=== PATIENT | male | born 1945 | race Caucasian/White ===

== ENCOUNTER 2017-12-28 14:43 | Emergency (ER) | payer MEDICARE, BC ==
--- NOTE | 2017-12-28 15:13 | EDM.PDOC ---
ED HPI GENERAL MEDICAL PROBLEM - General Chief Complaint: Skin Complaint Stated Complaint: wasp bites Time Seen by Provider: 12/28/17 15:07 Source of Information: Reports: Patient History Limitations: Reports: No Limitations - History of Present Illness INITIAL COMMENTS - FREE TEXT/NARRATIVE: This patient is a 72 year old male that presents to the ER. Patient reports yesterday morning at 11am he was out and flipped over a barrel and there was a wasp nest. He reports he got stung once in right roearm, right upper arm, and left upper arm. A total of 3 stings. Patient reports having redness and itching at the site since being stung. He reports he took Benadryl this morning once, but it still is red. Patient denies vasquez, dizziness, n, v, d, f, cp, soa, chest tightness, wheezing, airway closure, acid reflux. Airway is intact. Conversing in full and complete sentences. No acute distress. Stable. Onset Date: 12/27/17 Onset Time: 11:00 Location: Reports: Upper Extremity, Left, Upper Extremity, Right Severity: Mild Improves with: Reports: None Worsens with: Reports: None Associated Symptoms: Denies: Confusion, Chest Pain, Cough, cough w sputum, Diaphoresis, Fever/Chills, Headaches, Loss of Appetite, Malaise, Nausea/Vomiting , Rash, Seizure, Shortness of Breath, Syncope, Weakness - Related Data Allergies Allergy/AdvReac Type Severity Reaction Status Date / Time Penicillins Allergy Hives Verified 12/28/17 14:44 Home Meds: Home Meds Aspirin [Ladonna Chewable Aspirin] 81 mg PO DAILY 05/15/13 [History] Citalopram [Citalopram HBr] 20 mg PO ASDIRECTED 05/15/13 [History] Gemfibrozil 25 gm MC DAILY 05/15/13 [History] Glucosamine [Glucosamine Sulfate] 1,000 mg PO DAILY 05/15/13 [History] Lisinopril [Prinivil] 10 mg PO DAILY 05/15/13 [History] Multivitamin [Multi Vitamin Daily] 1 tab PO DAILY 05/15/13 [History] Pravastatin [Pravachol] 20 mg PO DAILY 05/15/13 [History] Tamsulosin [Flomax] 0.4 mg PO DAILY 05/15/13 [History] Cholecalciferol (Vitamin D3) [Vitamin D] 5,000 unit PO DAILY 12/28/17 [History] metFORMIN [Glucophage XR] 500 mg PO DAILY 12/28/17 [History] ED ROS GENERAL - Review of Systems Review Of Systems: See Below Constitutional: Reports: No Symptoms HEENT: Reports: No Symptoms Respiratory: Reports: No Symptoms. Denies: Shortness of Breath, Wheezing Cardiovascular: Reports: No Symptoms Endocrine: Reports: No Symptoms GI/Abdominal: Reports: No Symptoms : Reports: No Symptoms Musculoskeletal: Reports: No Symptoms Skin: Reports: Erythema (left upper arm, right upper arm, right forearm. Well localized, circular. Not hives. No stingers seen. ) Neurological: Reports: No Symptoms Psychiatric: Reports: No Symptoms Hematologic/Lymphatic: Reports: No Symptoms Immunologic: Reports: No Symptoms ED EXAM, SKIN/RASH Exam: See Below Exam Limited By: No Limitations General Appearance: Alert, WD/WN, No Apparent Distress Eye Exam: Bilateral Eye: Normal Inspection, PERRL Ears: Normal External Exam, Normal Canal, Hearing Grossly Normal, Normal TMs Nose: Normal Inspection, Normal Mucosa, No Blood Throat/Mouth: Normal Inspection, Normal Lips, Normal Teeth, Normal Gums, Normal Oropharynx, Normal Voice, No Airway Compromise Head: Atraumatic, Normocephalic Neck: Normal Inspection, Supple, Non-Tender, Full Range of Motion Respiratory/Chest: No Respiratory Distress, Lungs Clear, Normal Breath Sounds, No Accessory Muscle Use, Chest Non-Tender Cardiovascular: Normal Peripheral Pulses, Regular Rate, Rhythm, No Edema, No Gallop, No JVD, No Murmur, No Rub Peripheral Pulses: 2+: Radial (L), Radial (R) Back Exam: Normal Inspection, Full Range of Motion Extremities: Normal Inspection, Normal Range of Motion, Non-Tender, No Pedal Edema, Normal Capillary Refill Neurological: Alert, Oriented Psychiatric: Normal Affect, Normal Mood Skin: Warm, Dry, Intact, Normal Color, No Rash Location, Skin: Upper Extremity, Right, Upper Extremity, Left Characteristics: Erythematous, Other (no hives. no streaking. RUE, RIGHT forearm. Left upper arm. ) Lymphatic: No Adenopathy Course - Vital Signs Last Recorded V/S: Last Vital Signs Temp 96.6 F 12/28/17 14:46 Pulse 69 12/28/17 14:46 Resp 18 12/28/17 14:46 BP 121/83 12/28/17 14:46 Pulse Ox 98 12/28/17 14:46 Departure - Departure Time of Disposition: 15:07 Disposition: Home, Self-Care 01 Condition: Good Clinical Impression: Wasp sting Qualifiers: Encounter type: initial encounter Injury intent: accidental or unintentional Qualified Code(s): T63.461A - Toxic effect of venom of wasps, accidental ( unintentional), initial encounter - Discharge Information *PRESCRIPTION DRUG MONITORING PROGRAM REVIEWED*: No *COPY OF PRESCRIPTION DRUG MONITORING REPORT IN PATIENT [place]: No Instructions: Bee, Wasp, or Hornet Sting, Adult Forms: ED Department Discharge Additional Instructions: Followup with your primary care provider Return to the ER for worsening of condition or any emergent concerns such as difficulty breathing, chest tightness, wheezing, airway closing Benadryl over the counter every 6 hours as needed for rash May use over the counter benadryl cream for itching - Assessment/Plan Plan: PLEASE SEE RN NOTE FOR PFSH.
== END 2017-12-28 15:21 | disposition home or self-care (01) ==
LOC: CC.ED 14:43
DX: T63.461A Toxic effect of venom of wasps, accidental (unintentional), initial encounter (principal); Z79.82 Long term (current) use of aspirin; Z79.899 Other long term (current) drug therapy; Z79.84 Long term (current) use of oral hypoglycemic drugs
CPT/HCPCS: 99282

== ENCOUNTER 2020-04-09 13:35 | Emergency (ER) | payer MEDICARE, BC ==
--- NOTE | 2020-04-09 13:48 | EDM.PDOC ---
ED HPI GENERAL MEDICAL PROBLEM - General Chief Complaint: General Stated Complaint: Puncture Wound Time Seen by Provider: 04/09/20 13:45 Source of Information: Reports: Patient History Limitations: Reports: No Limitations - History of Present Illness INITIAL COMMENTS - FREE TEXT/NARRATIVE: Patient is a 74 year old male that presents to the ER. Patient reports he stepped on a jordan nail and it went into his right boot. Patient reports he thinks maybe it got his foot and he is out of date on his tetanus. Onset: Today Onset Date: 04/09/20 Duration: Hour(s): (1) Location: Reports: Lower Extremity, Right Improves with: Reports: None Worsens with: Reports: None Associated Symptoms: Reports: No Other Symptoms - Related Data Allergies Allergy/AdvReac Type Severity Reaction Status Date / Time Penicillins Allergy Hives Verified 12/28/17 14:44 Home Meds: Home Meds Aspirin [Ladonna Chewable Aspirin] 81 mg PO DAILY 05/15/13 [History] Citalopram [Citalopram HBr] 20 mg PO ASDIRECTED 05/15/13 [History] Glucosamine [Glucosamine Sulfate] 1,000 mg PO DAILY 05/15/13 [History] Multivitamin [Multi Vitamin Daily] 1 tab PO DAILY 05/15/13 [History] Pravastatin [Pravachol] 20 mg PO DAILY 05/15/13 [History] Tamsulosin [Flomax] 0.4 mg PO DAILY 05/15/13 [History] gemfibroziL [Gemfibrozil] 25 gm MC DAILY 05/15/13 [History] lisinopriL [Prinivil] 10 mg PO DAILY 05/15/13 [History] Cholecalciferol (Vitamin D3) [Vitamin D] 5,000 unit PO DAILY 12/28/17 [History] metFORMIN [Glucophage XR] 500 mg PO DAILY 12/28/17 [History] Past Medical History Cardiovascular History: Reports: High Cholesterol, Hypertension Genitourinary History: Reports: Prostate Disorder Musculoskeletal History: Reports: Arthritis Psychiatric History: Reports: Anxiety, Depression Endocrine/Metabolic History: Reports: Diabetes, Type II - Past Surgical History HEENT Surgical History: Reports: Other (See Below) Other HEENT Surgeries/Procedures: nodules removed from throat/neck GI Surgical History: Reports: Hernia, Inguinal Other GI Surgeries/Procedures: x2 and 2009 Social & Family History - Family History Family Medical History: No Pertinent Family History - Caffeine Use Caffeine Use: Reports: Coffee ED ROS GENERAL - Review of Systems Review Of Systems: See Below Constitutional: Reports: No Symptoms Respiratory: Reports: No Symptoms Cardiovascular: Reports: No Symptoms Musculoskeletal: Reports: No Symptoms Skin: Reports: Wound ("maybe have wound on bottom of foot"?) ED EXAM, GENERAL - Physical Exam Exam: See Below Exam Limited By: No Limitations General Appearance: Alert, WD/WN, No Apparent Distress Respiratory/Chest: No Respiratory Distress, Lungs Clear Cardiovascular: Normal Peripheral Pulses, Regular Rate, Rhythm Peripheral Pulses: 2+: Posterior Tibial (L), Posterior Tibial (R), Dorsalis Pedis (L), Dorsalis Pedis (R) Extremities: Normal Inspection, Normal Range of Motion, Non-Tender, No Pedal Edema, Normal Capillary Refill Neurological: Alert, Oriented Psychiatric: Normal Affect, Normal Mood Skin Exam: Warm, Dry, Intact, Normal Color, No Rash, Other (There is no open wound or puncture wound to the entire right foot. ) Course - Vital Signs Last Recorded V/S: Last Vital Signs Temp 97.2 F 04/09/20 13:45 Pulse 84 04/09/20 13:45 Resp 16 04/09/20 13:45 BP 141/74 H 04/09/20 13:45 Pulse Ox 96 04/09/20 13:45 - Orders/Labs/Meds Orders: Active Orders 24 hr Category Date Time Status Vaccines to be Administered [RC] PER UNIT ROUTINE Care 04/09/20 13:46 Active Meds: Medications Discontinued Medications Generic Name Dose Route Start Last Admin Trade Name Jose PRN Reason Stop Dose Admin Diphtheria/Tetanus/Acell Pertussis 0.5 ml 04/09/20 13:46 Adacel IM 04/09/20 13:47 .ONCE ONE Departure - Departure Time of Disposition: 13:47 Disposition: Home, Self-Care 01 Condition: Good Clinical Impression: Need for Tdap vaccination - Discharge Information *PRESCRIPTION DRUG MONITORING PROGRAM REVIEWED*: Not Applicable *COPY OF PRESCRIPTION DRUG MONITORING REPORT IN PATIENT [place]: Not Applicable Instructions: VIS, Tetanus, Diphtheria, and Pertussis (Tdap) - CDC (08/18/2019) Forms: ED Department Discharge Additional Instructions: Followup with primary care provider as needed Return to the ER as needed You got your Tetanus today Sepsis Event Note (ED) - Focused Exam Vital Signs: Vital Signs Temp Pulse Resp BP Pulse Ox 04/09/20 13:45 97.2 F 84 16 141/74 H 96 - My Orders Last 24 Hours: My Active Orders 04/09/20 13:46 Vaccines to be Administered [RC] PER UNIT ROUTINE - Assessment/Plan Last 24 Hours: My Active Orders 04/09/20 13:46 Vaccines to be Administered [RC] PER UNIT ROUTINE Plan: SEE RN NOTE FOR PFSH
[2020-04-09 13:50] VITALS: BP 141/74; PULSE 84
[2020-04-09] MEDS: Diphtheria,Pertussis(Acell),Tetanus Vaccine 0.5 ML Syringe IM ONE (13:56)
== END 2020-04-09 14:12 | disposition home or self-care (01) ==
LOC: CC.ED 13:35
DX: Z23 Encounter for immunization (principal); I10 Essential (primary) hypertension; E78.00 Pure hypercholesterolemia, unspecified; F32.9 Major depressive disorder, single episode, unspecified; F41.9 Anxiety disorder, unspecified; E11.9 Type 2 diabetes mellitus without complications; M19.90 Unspecified osteoarthritis, unspecified site; Z79.82 Long term (current) use of aspirin; Z79.899 Other long term (current) drug therapy
CPT/HCPCS: 90471; 90715; 99281; 99283

== ENCOUNTER 2021-01-20 12:10 | Emergency (ER) | payer MEDICARE, BC, OTHER ==
--- NOTE | 2021-01-20 12:50 | EDM.PDOC ---
ED HPI GENERAL MEDICAL PROBLEM - General Chief Complaint: General Stated Complaint: sore hip Time Seen by Provider: 01/20/21 12:30 Source of Information: Reports: Patient History Limitations: Reports: No Limitations - History of Present Illness INITIAL COMMENTS - FREE TEXT/NARRATIVE: Geoff is a 75 year old male who presents with low back pain and left hip pain. Was out helping his grandson load cattle when the bull charged him and hit him on his left side and knocked him on the ground. Grandson was able to divert the bull and patient got up and climbed over the fence. Denies loss of consciousness. Was able to drive himself back to town but has become more and more sore over the last 30 minutes. Is concerned about a fracture. Has chronic low back pain but is much worse at present. Onset: Today, Sudden Duration: Minutes:, Getting Worse Location: Reports: Back, Pelvis, Lower Extremity, Left Quality: Reports: Ache Severity: Severe Improves with: Reports: Rest Worsens with: Reports: Movement Context: Reports: Trauma Associated Symptoms: Denies: Confusion, Chest Pain, Cough, Fever/Chills, Headaches, Loss of Appetite, Malaise, Nausea/Vomiting, Shortness of Breath, Syncope, Weakness Left Hip Pain Score (Numeric/FACES): 8 - Related Data Allergies Allergy/AdvReac Type Severity Reaction Status Date / Time Penicillins Allergy Hives Verified 01/20/21 12:23 Home Meds: Home Meds Aspirin [Ladonna Chewable Aspirin] 81 mg PO DAILY 05/15/13 [History] Citalopram [Citalopram HBr] 20 mg PO ASDIRECTED 05/15/13 [History] Glucosamine [Glucosamine Sulfate] 1,000 mg PO DAILY 05/15/13 [History] Multivitamin [Multi Vitamin Daily] 1 tab PO DAILY 05/15/13 [History] Pravastatin [Pravachol] 20 mg PO DAILY 05/15/13 [History] Tamsulosin [Flomax] 0.4 mg PO DAILY 05/15/13 [History] gemfibroziL [Gemfibrozil] 25 gm MC DAILY 05/15/13 [History] lisinopriL [Prinivil] 10 mg PO DAILY 05/15/13 [History] Cholecalciferol (Vitamin D3) [Vitamin D] 5,000 unit PO DAILY 12/28/17 [History] metFORMIN [Glucophage XR] 500 mg PO DAILY 12/28/17 [History] Past Medical History Cardiovascular History: Reports: High Cholesterol, Hypertension Genitourinary History: Reports: Prostate Disorder Musculoskeletal History: Reports: Arthritis Psychiatric History: Reports: Anxiety, Depression Endocrine/Metabolic History: Reports: Diabetes, Type II - Past Surgical History HEENT Surgical History: Reports: Other (See Below) Other HEENT Surgeries/Procedures: nodules removed from throat/neck GI Surgical History: Reports: Hernia, Inguinal Other GI Surgeries/Procedures: x2 and 2009 Social & Family History - Family History Family Medical History: No Pertinent Family History - Tobacco Use Tobacco Use Status *Q: Never Tobacco User - Caffeine Use Caffeine Use: Reports: Coffee - Recreational Drug Use Recreational Drug Use: No ED ROS GENERAL - Review of Systems Review Of Systems: See Below Constitutional: Denies: Malaise, Weakness, Fatigue HEENT: Denies: Ear Pain, Nosebleed, Rhinitis, Sinus Problem, Throat Pain, Vertigo, Vision Change Respiratory: Denies: Shortness of Breath, Cough Cardiovascular: Denies: Chest Pain, Lightheadedness Endocrine: Denies: Fatigue GI/Abdominal: Denies: Abdominal Pain, Nausea, Vomiting : Reports: No Symptoms Musculoskeletal: Reports: Back Pain, Leg Pain, Joint Pain, Muscle Stiffness Neurological: Denies: Dizziness, Headache ED EXAM, GENERAL - Physical Exam Exam: See Below Exam Limited By: No Limitations General Appearance: Alert, WD/WN, No Apparent Distress Ears: Normal External Exam, Normal TMs Nose: Normal Inspection, Normal Mucosa, No Blood Throat/Mouth: Normal Inspection, Normal Oropharynx Head: Normocephalic Neck: Normal Inspection, Supple, Non-Tender, Full Range of Motion Respiratory/Chest: No Respiratory Distress, Lungs Clear, Normal Breath Sounds Cardiovascular: Regular Rate, Rhythm Back Exam: Normal Inspection, Full Range of Motion, Paraspinal Tenderness (left) Extremities: Other (tender to left mid thigh) Neurological: Alert, Oriented Skin Exam: Warm, Dry, Other (has abrasion to right knee and left outer calf) Course - Vital Signs Last Recorded V/S: Last Vital Signs Temp 96.8 F L 01/20/21 12:19 Pulse 77 01/20/21 12:19 Resp 20 01/20/21 12:19 BP 146/90 H 01/20/21 12:19 Pulse Ox 97 01/20/21 12:19 - Orders/Labs/Meds Orders: Active Orders 24 hr Category Date Time Status Femur Min 2V Lt [CR] Stat Exams 01/20/21 12:38 Ordered Hip Min 2V or 3V w Pelvis Lt [CR] Stat Exams 01/20/21 12:38 Stop Req Lumbar Spine Min 4V [CR] Stat Exams 01/20/21 12:38 Ordered Pelvis 1V or 2V [CR] Stat Exams 01/20/21 12:40 Ordered - Re-Assessments/Exams Free Text/Narrative Re-Assessment/Exam: 01/20/21 Xrays all appear negative without acute changes Departure - Departure Time of Disposition: 13:09 Disposition: Home, Self-Care 01 Condition: Good Clinical Impression: Left hip pain, Back pain - Discharge Information *PRESCRIPTION DRUG MONITORING PROGRAM REVIEWED*: No *COPY OF PRESCRIPTION DRUG MONITORING REPORT IN PATIENT [place]: No Instructions: Hip Pain, Acute Back Pain, Adult Referrals: PCP,None [Primary Care Provider] - Forms: ED Department Discharge Additional Instructions: 1. Rest 2. Ice to affected areas, may switch to heat tomorrow 3. Ibuprofen or tylenol, may use hydrocodone for more severe pain 4. Return if increased pain, difficulty ambulating or weakness 5. Call with any questions or concerns. Sepsis Event Note (ED) - Focused Exam Vital Signs: Vital Signs Temp Pulse Resp BP Pulse Ox 01/20/21 12:19 96.8 F L 77 20 146/90 H 97 - My Orders Last 24 Hours: My Active Orders 01/20/21 12:38 Femur Min 2V Lt [CR] Stat Hip Min 2V or 3V w Pelvis Lt [CR] Stat Lumbar Spine Min 4V [CR] Stat 01/20/21 12:40 Pelvis 1V or 2V [CR] Stat - Assessment/Plan Last 24 Hours: My Active Orders 01/20/21 12:38 Femur Min 2V Lt [CR] Stat Hip Min 2V or 3V w Pelvis Lt [CR] Stat Lumbar Spine Min 4V [CR] Stat 01/20/21 12:40 Pelvis 1V or 2V [CR] Stat
== END 2021-01-20 13:16 | disposition home or self-care (01) ==
LOC: CC.ED 12:10
DX: M54.5 Low back pain (principal); M25.551 Pain in right hip; S80.211A Abrasion, right knee, initial encounter; E78.00 Pure hypercholesterolemia, unspecified; I10 Essential (primary) hypertension; E11.9 Type 2 diabetes mellitus without complications; Z79.82 Long term (current) use of aspirin; Z79.84 Long term (current) use of oral hypoglycemic drugs; Z88.0 Allergy status to penicillin; Z79.899 Other long term (current) drug therapy; W55.22XA Struck by cow, initial encounter
CPT/HCPCS: 72110; 99283; 99283-25

== ENCOUNTER 2022-11-26 12:58 | Emergency (ER) | payer MEDICARE, OTHER ==
[2022-11-26] MEDS: Glucagon,Human Recombinant 1 MG Vial IVPUSH ONE (13:15)
== END 2022-11-26 14:20 | disposition home or self-care (01) ==
LOC: CC.ED 12:58
DX: T18.128A Food in esophagus causing other injury, initial encounter (principal); E11.9 Type 2 diabetes mellitus without complications; E78.00 Pure hypercholesterolemia, unspecified; I10 Essential (primary) hypertension; M19.90 Unspecified osteoarthritis, unspecified site; Z79.82 Long term (current) use of aspirin; Z79.84 Long term (current) use of oral hypoglycemic drugs; Z79.899 Other long term (current) drug therapy; Z88.0 Allergy status to penicillin
CPT/HCPCS: 96374; 99283-25; J1610

== ENCOUNTER 2022-12-27 14:51 | Emergency (ER) | payer MEDICARE, OTHER | END 2022-12-27 16:30 | disposition home or self-care (01) | LOC: CC.ED 14:51 | DX: S16.1XXA Strain of muscle, fascia and tendon at neck level, initial encounter (principal); S09.90XA Unspecified injury of head, initial encounter; E78.00 Pure hypercholesterolemia, unspecified; I10 Essential (primary) hypertension; E11.9 Type 2 diabetes mellitus without complications; Z88.0 Allergy status to penicillin; Z79.84 Long term (current) use of oral hypoglycemic drugs; Z79.899 Other long term (current) drug therapy; W17.89XA Other fall from one level to another, initial encounter | CPT/HCPCS: 70450; 72125; 99283; 99284 ==

== ENCOUNTER 2023-09-22 19:35 | Emergency (ER) | payer MEDICARE, OTHER ==
[2023-09-22] MEDS: Sodium Chloride 0.9% 1,000 ML IV ONE (19:54)
[2023-09-22] MEDS: Ondansetron 4 MG/2 ML SDV IVPUSH PRN (19:55)
[2023-09-22 19:57] LABS: BASOPHILS ABSOLUTE AUTO 0.02 10^3/uL (0.00-0.50); BASOPHILS PERCENT AUTO 0.4 % (0-1); EOSINOPHILS ABSOLUTE AUTO 0.07 10^3/uL (0.00-1.50); EOSINOPHILS PERCENT AUTO 1.3 % (0-6); HEMATOCRIT 30.9 % (42.0-52.0); HEMOGLOBIN 10.8 g/dL (14.0-18.0); IMMATURE GRAN ABSOLUTE AUTO 0.01 10^3/uL (0.00-0.49); IMMATURE GRAN PERCENT AUTO 0.2 % (0.0-4.9); LYMPHOCYTES ABSOLUTE AUTO 0.27 10^3/uL (0.60-5.00); MEAN CORPUSCULAR HEMOGLOBIN 30.6 pg (27.0-32.0); MEAN CORPUSCULAR VOLUME 87.5 fL (83.0-97.0); MONOCYTES PERCENT AUTO 12.9 % (0-10); NEUTROPHILS ABSOLUTE AUTO 4.34 x10^3/uL (1.80-8.00); NEUTROPHILS PERCENT AUTO 80.2 % (41-71); PLATELET COUNT,PLT 304 10^3/uL (150-400); RED BLOOD CELL COUNT 3.53 x10^6/uL (4.50-6.00); WHITE BLOOD CELL COUNT,WBC 5.4 10^3/uL (4.0-11.0)
[2023-09-22] MEDS ORDERED: Sodium Chloride 0.9% 1,000 ML IV SCH (20:00)
[2023-09-22 20:12] LABS: ALBUMIN 3.9 g/dL (3.4-5.0); BILIRUBIN TOTAL 0.9 mg/dL (0.0-1.0); C-REACTIVE PROTEIN 1.59 mg/dL (<=0.50); CALCIUM 8.7 mg/dL (8.4-10.1); CREATININE 0.9 mg/dL (0.7-1.3); EST CRCL DRUG DOSING (CG) 65.44 mL/min; MAGNESIUM 1.4 mg/dL (1.8-2.4); POTASSIUM,K 3.9 mEq/L (3.5-5.0); PROTEIN TOTAL,TP 7.4 g/dL (6.4-8.2)
[2023-09-22] MEDS: Acetaminophen 325 MG Tab PO ONE (20:15)
[2023-09-22 20:40] LABS: CORONAVIRUS COVID-19 NAA POSITIVE (NEGATIVE); INFLUENZA A NAA NEGATIVE (NEGATIVE); INFLUENZA B NAA NEGATIVE (NEGATIVE); RESPIRATORY SYNCYTIAL VIR NAA NEGATIVE (NEGATIVE)
[2023-09-22 20:45] LABS: APPEARANCE,URINE CLEAR (CLEAR); BILIRUBIN,URINE NEGATIVE (NEGATIVE); COLOR,URINE YELLOW (YELLOW); GLUCOSE,URINE 100 mg/dL (NEGATIVE); KETONES,URINE TRACE mg/dL (NEGATIVE); LEUKOCYTE ESTERASE,URINE NEGATIVE (NEGATIVE); NITRITE,URINE NEGATIVE (NEGATIVE); OCCULT BLOOD,URINE TRACE-INTACT (NEGATIVE); PH,URINE 6.5 (4.5-8.0); PROTEIN,URINE NEGATIVE (NEGATIVE); RBC,URINE NOT SEEN /HPF (0-5); UROBILINOGEN,URINE 0.2 EU/dL (0.2-1.0); WBC,URINE NOT SEEN /HPF (0-5)
[2023-09-22] MEDS: Magnesium Oxide 400 MG Tab PO ONE (21:17)
== END 2023-09-22 21:46 | disposition home or self-care (01) ==
LOC: CC.ED 19:35
DX: U07.1 COVID-19 (principal); E83.42 Hypomagnesemia; E87.1 Hypo-osmolality and hyponatremia; I10 Essential (primary) hypertension; M19.90 Unspecified osteoarthritis, unspecified site; E11.9 Type 2 diabetes mellitus without complications; Z88.0 Allergy status to penicillin; Z79.82 Long term (current) use of aspirin; Z79.84 Long term (current) use of oral hypoglycemic drugs; Z79.899 Other long term (current) drug therapy; Z87.891 Personal history of nicotine dependence
CPT/HCPCS: 0241U; 36415; 70450; 80053; 81001; 83735; 84484; 85025; 86140; 93005; 96361; 96374; 99284; 99285-25; A9270-GY; J2405; J7030

== ENCOUNTER 2023-09-28 11:49 | Emergency (ER) | payer MEDICARE, OTHER ==
[2023-09-28 12:16] LABS: BASOPHILS ABSOLUTE AUTO 0.02 10^3/uL (0.00-0.50); BASOPHILS PERCENT AUTO 0.6 % (0-1); EOSINOPHILS ABSOLUTE AUTO 0.11 10^3/uL (0.00-1.50); EOSINOPHILS PERCENT AUTO 3.3 % (0-6); HEMATOCRIT 32.4 % (42.0-52.0); HEMOGLOBIN 11.5 g/dL (14.0-18.0); IMMATURE GRAN ABSOLUTE AUTO 0.01 10^3/uL (0.00-0.49); IMMATURE GRAN PERCENT AUTO 0.3 % (0.0-4.9); LYMPHOCYTES ABSOLUTE AUTO 0.98 10^3/uL (0.60-5.00); LYMPHOCYTES PERCENT AUTO 29.3 % (24-44); MEAN CORPUSCULAR HEMOGLOBIN 30.6 pg (27.0-32.0); MEAN CORPUSCULAR HGB CONC 35.5 g/dL (32.0-36.0); MEAN CORPUSCULAR VOLUME 86.2 fL (83.0-97.0); MONOCYTES ABSOLUTE AUTO 0.37 10^3/uL (0.00-1.50); NEUTROPHILS ABSOLUTE AUTO 1.86 x10^3/uL (1.80-8.00); NEUTROPHILS PERCENT AUTO 55.5 % (41-71); PLATELET COUNT,PLT 297 10^3/uL (150-400); RED BLOOD CELL COUNT 3.76 x10^6/uL (4.50-6.00); WHITE BLOOD CELL COUNT,WBC 3.4 10^3/uL (4.0-11.0)
[2023-09-28 12:20] LABS: APPEARANCE,URINE CLEAR (CLEAR); BILIRUBIN,URINE NEGATIVE (NEGATIVE); COLOR,URINE YELLOW (YELLOW); GLUCOSE,URINE NEGATIVE (NEGATIVE); KETONES,URINE TRACE mg/dL (NEGATIVE); LEUKOCYTE ESTERASE,URINE NEGATIVE (NEGATIVE); NITRITE,URINE NEGATIVE (NEGATIVE); OCCULT BLOOD,URINE NEGATIVE (NEGATIVE); PROTEIN,URINE NEGATIVE (NEGATIVE); UROBILINOGEN,URINE 0.2 EU/dL (0.2-1.0)
[2023-09-28] MEDS: Ondansetron 4 MG Tab.DIS PO ONE (12:26)
[2023-09-28 12:34] LABS: ALBUMIN 3.9 g/dL (3.4-5.0); CALCIUM 9.1 mg/dL (8.4-10.1); CREATININE 0.8 mg/dL (0.7-1.3); EST CRCL DRUG DOSING (CG) 73.63 mL/min; MAGNESIUM 1.7 mg/dL (1.8-2.4); POTASSIUM,K 4.3 mEq/L (3.5-5.0); PROTEIN TOTAL,TP 7.5 g/dL (6.4-8.2)
[2023-09-28] MEDS ORDERED: Magnesium Sulfate/Water 2 GM in Premix Bag 1 BAG IV ONE (12:55)
[2023-09-28] MEDS: Sodium Chloride 0.9% 1,000 ML IV ONE (13:15)
[2023-09-28] MEDS: Take Home: Ondansetron 4 MG Tab.DIS, 2 Tab Pack PO ONE (15:03)
== END 2023-09-28 15:25 | disposition home or self-care (01) ==
LOC: CC.ED 11:49
DX: U07.1 COVID-19 (principal); E87.1 Hypo-osmolality and hyponatremia; E78.00 Pure hypercholesterolemia, unspecified; I10 Essential (primary) hypertension; E11.9 Type 2 diabetes mellitus without complications; Z88.0 Allergy status to penicillin; Z79.82 Long term (current) use of aspirin; Z79.899 Other long term (current) drug therapy; Z79.84 Long term (current) use of oral hypoglycemic drugs; Z87.891 Personal history of nicotine dependence
CPT/HCPCS: 36415; 71046; 80053; 81003; 83735; 85025; 96360; 96361; 99284; A9270; J7030